=== PATIENT | female | born 1965 | race Asian ===

== ENCOUNTER → 2017-11-22 | Outpatient (CLI) | payer OTHER ==
--- NOTE | 2017-11-22 15:43 | Diagnostic Imaging Report ---
#[id number] - MGDXRT #UNILATERAL RIGHT DIGITAL DIAGNOSTIC MAMMOGRAM WITH SPOT COMPRESSION AND MAGNIFICATION: 11/22/2017 Comparison is made to exam dated: 10/14/2017 mammogram - [facility]. Current study contains 3 films. The tissue of the right breast is heterogeneously dense. This may lower the sensitivity of mammography. There is an amorphous calcification in the right breast at 11 o'clock posterior depth near the chest wall. These may have been faintly visible on prior study dated 10/01/2015 from [facility]. No other significant masses or calcifications are seen in the breast. IMPRESSION: PROBABLY BENIGN The amorphous calcification in the right breast is probably benign. A follow-up in 6 months is recommended to demonstrate stability. The patient was notified of these findings and the need for followup study. William Marin Jr., D.O. cw/:11/22/2017 14:44:01 Charger Operator: Maribel MILLER)([place]), [facility] letter sent: Followup Recommended Mammogram BI-RADS: 3 Probably benign
== END ==
LOC: MAMMO 11:22
PROVIDERS: ATTEND Family Medicine
DX: R92.8 Other abnormal and inconclusive findings on diagnostic imaging of breast (principal)

== ENCOUNTER → 2018-06-30 | Outpatient (CLI) | payer OTHER ==
--- NOTE | 2018-06-30 16:28 | Diagnostic Imaging Report ---
#[id number] - MGDXRT #UNILATERAL RIGHT DIGITAL DIAGNOSTIC MAMMOGRAM WITH CAD WITH SPOT COMPRESSION AND MAGNIFICATION: 06/30/2018 Comparison is made to exams dated: 11/22/2017 mammogram and 10/14/2017 mammogram - [facility]. Current study contains 6 films. The tissue of the right breast is heterogeneously dense. This may lower the sensitivity of mammography. Current study was also evaluated with a Computer Aided Detection (CAD) system. There is a heterogeneous calcification in the right breast at 11 o'clock posterior depth. These have more than tripled in amount compared to the study dated 11/22/2017. No other significant masses or calcifications are seen in the breast. IMPRESSION: HIGHLY SUGGESTIVE OF MALIGNANCY The heterogeneous calcification in the right breast is highly suggestive of malignancy. A stereotactic biopsy is recommended. Due to the location very posterior near the chest wall a prone stereotactic table would be more likely to be successful in sampling these abnormal calcifications. A phone call was made to Dr. Richard Aviles and the case was discussed in detail. The patient was also informed of the suspicious nature of the calcifications and the need for biopsy. William Marin Jr., D.O. cw/:06/30/2018 14:04:30 Slat Pickler: Maribel MILLER)(M), [facility] letter sent: Biopsy Required Mammogram BI-RADS: 5 Highly suggestive of malignancy
== END ==
LOC: MAMMO 10:51
PROVIDERS: ATTEND Family Medicine
DX: R92.1 Mammographic calcification found on diagnostic imaging of breast (principal)

== ENCOUNTER → 2020-03-19 | Outpatient (CLI) | payer OTHER ==
--- NOTE | 2020-03-19 11:58 | Diagnostic Imaging Report ---
Exam: Bone mineral density study. History: Osteoporosis Comparison: 07/31/2015 Discussion: Evaluation of the left hip and lumbar spine was performed . The study is technically adequate. The patient's fracture risk is compared to an age-matched control. The patient denies prior surgery/fracture of the spine, hips or forearm. Left hip femoral neck bone mineral density: 0.615 g/cm2, T-score is -2.1, Z-score is -1.2. Left hip total bone mineral density: 0.745 g/cm2, T-score is -1.6, Z-score is -1.0. Left hip bone mineral density is increased 2.3% from the prior examination from 07/31/2015. Lumbar spine total bone mineral density: 0.735 gm/cm2, T-score is -2.8, Z-score is -1.9. Lumbar bone mineral density is decreased 3.6% from the prior examination from 07/31/2015. Impression: 1. Bone mineralization by WHO Classification of the left hip is osteopenia, the fracture risk is moderate. 2. Bone mineralization by WHO Classification of the lumbar spine is osteoporosis, the fracture risk is increased. Recommendations: Medical evaluation for secondary causes of low bone mineral density may be appropriate. Correlate clinically for the necessity and timing of the next bone mineral density study. Signed by: Dr. Tom Roe MD on 03/19/2020 11:55 AM
== END ==
LOC: DX 10:31
PROVIDERS: ATTEND Family Medicine
DX: M81.0 Age-related osteoporosis without current pathological fracture (principal)
CPT/HCPCS: 77080

== ENCOUNTER 2021-05-31 08:33 | Emergency (ER) | payer OTHER ==
[~2021-05-31] VITALS: Ht 147.3 cm; Wt 59.0 kg
[2021-05-31] MEDS ORDERED: SODIUM CHLORIDE 0.9% 500ML 500 ML IV ONE (09:45)
[2021-05-31 10:01] LABS: BASOPHILS % 0.2 % (0.0-1.0); EOSINOPHILS # (AUTO) 0.2 (0.0-0.4); EOSINOPHILS % 2.6 % (0.0-6.0); HEMATOCRIT 38.8 % (34.2-44.1); HEMOGLOBIN 12.5 g/dL (12.0-16.0); LYMPHOCYTES # (AUTO) 0.7 (1.0-3.2); MEAN CORPUSCULAR HEMOGLOBIN 29.4 pg (28-32); MEAN CORPUSCULAR HGB CONC 32.2 g/dL (31-35); MEAN CORPUSCULAR VOLUME 91.3 fL (81-99); MONOCYTES # (AUTO) 0.4 (0.2-0.8); MONOCYTES % 6.2 % (4.4-11.3); NEUTROPHILS % 79.8 % (38.7-80.0); PLATELET COUNT 213 x10e3/uL (140-360); RED BLOOD COUNT 4.25 x10e6/uL (3.6-5.1)
[2021-05-31 10:25] LABS: ALBUMIN 3.7 g/dL (3.5-5.0); ANION GAP 13.4 mmol/L (8-16); CALCIUM 8.7 mg/dL (8.4-10.2); CREATININE, SERUM 0.75 mg/dL (0.57-1.11); POTASSIUM 3.4 mmol/L (3.5-5.1)
[2021-05-31 12:34] LABS: CLARITY,URINE CLEAR (CLEAR); COLOR,URINE YELLOW (YELLOW); KETONES,URINE NEGATIVE (NEGATIVE); LEUKOCYTE ESTERASE ,URINE NEGATIVE (NEGATIVE); NITRITE,URINE NEGATIVE (NEGATIVE); PROTEIN,URINE DIPSTICK NEGATIVE (NEGATIVE); URINE UROBILINOGEN 0.2 mg/dL (0.2 - 1)
[2021-05-31 12:35] LABS: BACTERIA,URINE RARE /HPF; EPITHELIAL CELLS,URINE FEW /LPF; RBC,URINE 21-50 /HPF (0-5)
== END 2021-05-31 14:35 | disposition home or self-care (01) ==
LOC: ER 09:10
DX: R53.83 Other fatigue (principal); N39.0 Urinary tract infection, site not specified; C50.919 Malignant neoplasm of unspecified site of unspecified female breast; Z88.6 Allergy status to analgesic agent; Z88.1 Allergy status to other antibiotic agents; Z88.8 Allergy status to other drugs, medicaments and biological substances; Z20.822 Contact with and (suspected) exposure to COVID-19
CPT/HCPCS: 36415; 80053; 81001; 85025; 87086; 87400; 99283; J7040; U0002